=== PATIENT | female | born 1945 | race Caucasian/White ===

== ENCOUNTER 2019-05-14 03:41 | Emergency (ER) | payer MEDICARE ==
[2019-05-14] MEDS ORDERED: Sodium Chloride 0.9% 1,000 ML ONE (04:06)
[2019-05-14 04:38] LABS: #Basophils 0.1 thou/uL (0.0-0.2); #Eosinphils 0.1 thou/uL (0.0-0.7); #Lymphocytes 1.4 thou/uL (1.20-3.40); #Monocytes 1.2 thou/uL (0.11-0.59); #Neutrophils 9.1 thou/uL (1.40-6.50); %Eosinophils 0.5 % (0.0-10.0); %Lymphocytes 12.1 % (21.0-51.0); %Neutrophils 76.4 % (42.0-75.0); Mean Corpuscular Volume 87.9 fL (78.0-98.0); Mean Platelet Volume 5.8 fL (7.4-10.4); Platelet Count 260 thou/uL (130-400); RBC Distribution Width 12.5 % (11.5-14.5); Red Blood Cell (RBC) Count 4.49 mill/uL (4.20-5.40); White Blood Cell (WBC) Count 11.9 thou/uL (4.8-10.8)
[2019-05-14 04:49] LABS: ALT (SGPT) 12 U/L (8-55); AST (SGOT) 16 U/L (5-34); Albumin 4.7 g/dL (3.4-4.8); Anion Gap 18 mmol/L (10-20); BUN (Urea Nitrogen) 6 mg/dL (9.8-20.1); Bilirubin, Total 0.5 mg/dL (0.2-1.2); CK (CPK) 64 U/L (29-168); Calc. Creatinine Clearance 0 mL/min (70-130); Calcium 10.3 mg/dL (7.8-10.44); Carbon Dioxide 22 mmol/L (23-31); Chloride 100 mmol/L (98-107); Estimated GFR-MDRD 76; Globulin 3.2 g/dL (2.4-3.5); Glucose 110 mg/dL (83-110); Protein, Total 7.9 g/dL (6.0-8.3); Sodium 136 mmol/L (136-145)
[2019-05-14 05:06] LABS: Alkaline Phosphatase 58 U/L (40-110)
[2019-05-14] MEDS ORDERED: Acetaminophen 500 MG TAB ONE (05:32)
[2019-05-14] MEDS ORDERED: Cyclobenzaprine 10 MG TAB ONE (05:32)
[2019-05-14 05:52] LABS: Bilirubin Negative (Negative); Blood, Urine Negative (Negative); Clarity Clear (Clear); Glucose, Urine (Dipstick) Negative (Negative); Leukocyte Trace (Negative); Nitrite Negative (Negative); Protein, Urine (Dipstick) Negative (Neg-Trace); Urobilinogen 0.2 mg/dL (Less than 2)
[2019-05-14 05:54] LABS: Bacteria/HPF Rare-Few HPF (None Seen); RBC/HPF 0-3 HPF (0-3); Squamous Epithelial 0-3 HPF (0-3)
[2019-05-14] MEDS ORDERED: cefTRIAXone\\ROCEPHIN 2 GM VIAL ONE (06:11)
[2019-05-14] MEDS ORDERED: Sodium Chloride 0.9% 100 ML ONE (06:11)
[2019-05-14] MEDS ORDERED: methylPREDNISolone Sod Succ/PF 125 MG/2 ML VIAL ONE (06:20)
--- NOTE | 2019-05-14 08:53 | RAD ---
RADIOGRAPH RIGHT FOOT THREE VIEWS: 05/14/2019 4:16 a.m. HISTORY: A 74-year-old female with right foot pain, possible gout. FINDINGS: At the first MTP there is moderate to severe osteophytosis, sclerosis, and multiple subchondral cysts , along with undulating irregularity of the articular surfaces. The degree of joint space narrowing a t the first MTP is mild. There is no hallux valgus. There is diffuse osteopenia. No major arthritic c hanges in the rest of the joints. 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 At least some of the changes are osteoarthro sis, either primary or secondary. Some of the changes could represent sequelae of chronic gout. POS: CET
== END 2019-05-14 06:58 | disposition home or self-care (01) ==
LOC: MADERS 03:41
DX: M10.9 Gout, unspecified (principal); N39.0 Urinary tract infection, site not specified
CPT/HCPCS: 80053; 81003; 81015; 82550; 83605; 85025; 87040; 87077; 87086; 96361; 96365; 96375; J0696; J2930; J3490; J7050

== ENCOUNTER 2020-11-17 13:37 | Emergency (ER) | payer MEDICARE ==
[2020-11-17 14:25] LABS: #Basophils 0.1 thou/uL (0.0-0.2); #Eosinphils 0.1 thou/uL (0.0-0.7); #Lymphocytes 1.9 thou/uL (1.20-3.40); #Monocytes 0.7 thou/uL (0.11-0.59); #Neutrophils 3.7 thou/uL (1.40-6.50); %Basophils 1.9 % (0.0-1.0); %Eosinophils 2.1 % (0.0-10.0); %Lymphocytes 29.3 % (21.0-51.0); %Monocytes 10.3 % (0.0-10.0); %Neutrophils 56.4 % (42.0-75.0); Hemoglobin 12.3 g/dL (12.0-16.0); Mean Corpuscular HGB CONC 32.1 g/dL (32.0-36.0); Mean Corpuscular Hemoglobin 28.9 pg (27.0-31.0); Mean Corpuscular Volume 90.1 fL (78.0-98.0); Mean Platelet Volume 7.9 fL (7.4-10.4); Platelet Count 243 thou/uL (130-400); Red Blood Cell (RBC) Count 4.24 mill/uL (4.20-5.40); White Blood Cell (WBC) Count 6.5 thou/uL (4.8-10.8)
[2020-11-17 14:29] LABS: INR-International Normal Ratio 0.8; PTT 26.7 sec (22.9-36.1); Prothrombin Time 11.7 sec (12.0-14.7)
[2020-11-17 14:40] LABS: ALT (SGPT) 10 U/L (8-55); AST (SGOT) 18 U/L (5-34); Albumin 4.4 g/dL (3.4-4.8); Alkaline Phosphatase 52 U/L (40-110); Anion Gap 16 mmol/L (10-20); BUN (Urea Nitrogen) 8 mg/dL (9.8-20.1); Bilirubin, Total 0.5 mg/dL (0.2-1.2); Calc. Creatinine Clearance 0 mL/min (70-130); Calcium 9.3 mg/dL (7.8-10.44); Carbon Dioxide 22 mmol/L (23-31); Chloride 103 mmol/L (98-107); Globulin 2.7 g/dL (2.4-3.5); Glucose 94 mg/dL (83-110); Potassium 3.8 mmol/L (3.5-5.1); Protein, Total 7.1 g/dL (5.8-8.1); Sodium 137 mmol/L (136-145)
== END 2020-11-17 14:52 | disposition short-term general hospital (02) ==
LOC: MADERS 13:37
DX: I63.9 Cerebral infarction, unspecified (principal); G81.94 Hemiplegia, unspecified affecting left nondominant side; R07.9 Chest pain, unspecified; R06.02 Shortness of breath; R11.0 Nausea; R20.2 Paresthesia of skin; R29.704 NIHSS score 4; M41.9 Scoliosis, unspecified; M10.9 Gout, unspecified; Z79.899 Other long term (current) drug therapy
CPT/HCPCS: 36416; 70450; 71045; 80053; 84484; 85025; 85610; 85730; 93005

== ENCOUNTER 2020-12-20 20:21 | Emergency (ER) | payer MEDICARE ==
[2020-12-20 20:55] LABS: #Basophils 0.1 thou/uL (0.0-0.2); #Eosinphils 0.2 thou/uL (0.0-0.7); #Monocytes 0.8 thou/uL (0.11-0.59); #Neutrophils 2.7 thou/uL (1.40-6.50); %Basophils 1.7 % (0.0-1.0); %Eosinophils 3.2 % (0.0-10.0); %Lymphocytes 44.2 % (21.0-51.0); %Neutrophils 39.9 % (42.0-75.0); Hemoglobin 12.8 g/dL (12.0-16.0); Mean Corpuscular HGB CONC 32.6 g/dL (32.0-36.0); Mean Corpuscular Hemoglobin 29.5 pg (27.0-31.0); Mean Corpuscular Volume 90.6 fL (78.0-98.0); Mean Platelet Volume 7.9 fL (7.4-10.4); Platelet Count 247 thou/uL (130-400); RBC Distribution Width 13.7 % (11.5-14.5); Red Blood Cell (RBC) Count 4.35 mill/uL (4.20-5.40); White Blood Cell (WBC) Count 6.9 thou/uL (4.8-10.8)
[2020-12-20] MEDS ORDERED: Dextrose 50% Abboject 50 ML SYRINGE ONE (21:13)
[2020-12-20 21:16] LABS: ALT (SGPT) 14 U/L (8-55); AST (SGOT) 20 U/L (5-34); Albumin 4.4 g/dL (3.4-4.8); Alkaline Phosphatase 48 U/L (40-110); Anion Gap 16 mmol/L (10-20); BUN (Urea Nitrogen) 9 mg/dL (9.8-20.1); Bilirubin, Total 0.6 mg/dL (0.2-1.2); Calc. Creatinine Clearance 0 mL/min (70-130); Calcium 9.4 mg/dL (7.8-10.44); Carbon Dioxide 22 mmol/L (23-31); Chloride 103 mmol/L (98-107); Glucose 64 mg/dL (83-110); Protein, Total 7.4 g/dL (5.8-8.1); Sodium 138 mmol/L (136-145)
[2020-12-20 21:24] LABS: Potassium 2.9 mmol/L (3.5-5.1)
[2020-12-20 21:42] LABS: Bilirubin Negative (Negative); Blood, Urine Trace (Negative); Clarity Clear (Clear); Glucose, Urine (Dipstick) 250 mg/dL (Negative); Ketone, Urine Negative (Negative); Leukocyte Trace (Negative); Nitrite Negative (Negative); Protein, Urine (Dipstick) Negative (Neg-Trace); Specific Gravity, Urine 1.015 (1.005-1.030); Urobilinogen 0.2 mg/dL (Less than 2)
[2020-12-20 21:46] LABS: Bacteria/HPF Rare-Few HPF (None Seen); RBC/HPF 0-3 HPF (0-3); Squamous Epithelial None Seen HPF (0-3); WBC/HPF 0-3 HPF (0-3)
[2020-12-20] MEDS ORDERED: Cefepime 2 GM VIAL ONE (22:03)
[2020-12-20] MEDS ORDERED: Potassium Chloride 20 MEQ TAB ONE (22:04)
[2020-12-20 22:41] LABS: SARS-CoV-2 NAA Rapid Test Not Detected (NotDetected)
[2020-12-20] MEDS ORDERED: Vancomycin HCl 500 MG VIAL ONE (23:05)
[2020-12-20] MEDS ORDERED: Vancomycin HCl 750 MG VIAL ONE (23:05)
[2020-12-20] MEDS ORDERED: Sodium Chloride 0.9% 250 ML 500 ML ONE (23:06)
[2020-12-20] MEDS ORDERED: Sodium Chloride 0.9% 1,000 ML ONE (23:06)
== END 2020-12-20 23:38 | disposition short-term general hospital (02) ==
LOC: MADERS 20:21
DX: T68.XXXA Hypothermia, initial encounter (principal); E87.6 Hypokalemia; E16.2 Hypoglycemia, unspecified; Z20.822 Contact with and (suspected) exposure to COVID-19; E03.9 Hypothyroidism, unspecified; M41.9 Scoliosis, unspecified; M10.9 Gout, unspecified; Z79.899 Other long term (current) drug therapy; Z79.82 Long term (current) use of aspirin
CPT/HCPCS: 0240U; 70450; 71045; 80053; 82962; 83605; 84484; 85025; 87040; 93005; 36415; 36416; 51701; 81003; 81015; 96365; 96375; J0692; J3370; J7050

== ENCOUNTER 2021-02-22 13:14 | Emergency (ER) | payer MEDICARE ==
[2021-02-22] MEDS ORDERED: Bacitracin 1 PK ONE (13:54)
[2021-02-22] MEDS ORDERED: Budesonide 0.5 MG/2 ML NEB ONE (17:50)
== END 2021-02-22 14:01 | disposition home or self-care (01) ==
LOC: MADERS 13:14
DX: S70.11XA Contusion of right thigh, initial encounter (principal); M25.512 Pain in left shoulder; E03.9 Hypothyroidism, unspecified; M41.9 Scoliosis, unspecified; M19.90 Unspecified osteoarthritis, unspecified site; Z86.73 Personal history of transient ischemic attack (TIA), and cerebral infarction without residual deficits; Z79.899 Other long term (current) drug therapy; Z79.82 Long term (current) use of aspirin; W01.0XXA Fall on same level from slipping, tripping and stumbling without subsequent striking against object, initial encounter
CPT/HCPCS: J7626

== ENCOUNTER 2021-05-09 23:12 | Emergency (ER) | payer MEDICARE ==
[2021-05-09] MEDS ORDERED: Fentanyl 100 MCG/2 ML VIAL ONE (23:52)
[2021-05-10] MEDS ORDERED: Fentanyl 100 MCG/2 ML VIAL ONE ×3 (02:32→12:00)
[2021-05-10 04:01] LABS: #Lymphocytes 0.5 thou/uL (1.20-3.40); #Monocytes 0.4 thou/uL (0.11-0.59); #Neutrophils 2.4 thou/uL (1.40-6.50); %Basophils 1.1 % (0.0-1.0); %Eosinophils 0.5 % (0.0-10.0); %Lymphocytes 16.2 % (21.0-51.0); %Monocytes 11.8 % (0.0-10.0); %Neutrophils 70.6 % (42.0-75.0); Hemoglobin 11.8 g/dL (12.0-16.0); Mean Corpuscular HGB CONC 31.8 g/dL (32.0-36.0); Mean Corpuscular Hemoglobin 29.6 pg (27.0-31.0); Mean Corpuscular Volume 93.2 fL (78.0-98.0); Mean Platelet Volume 7.5 fL (7.4-10.4); Platelet Count 158 thou/uL (130-400); RBC Distribution Width 12.4 % (11.5-14.5); Red Blood Cell (RBC) Count 3.97 mill/uL (4.20-5.40); White Blood Cell (WBC) Count 3.3 thou/uL (4.8-10.8)
[2021-05-10 04:23] LABS: ALT (SGPT) 33 U/L (8-55); AST (SGOT) 60 U/L (5-34); Albumin 4.1 g/dL (3.4-4.8); Alkaline Phosphatase 52 U/L (40-110); Anion Gap 13 mmol/L (10-20); BUN (Urea Nitrogen) 11 mg/dL (9.8-20.1); Bilirubin, Total 0.4 mg/dL (0.2-1.2); Calc. Creatinine Clearance 0 mL/min (70-130); Calcium 8.8 mg/dL (7.8-10.44); Carbon Dioxide 23 mmol/L (23-31); Chloride 103 mmol/L (98-107); Globulin 2.3 g/dL (2.4-3.5); Glucose 100 mg/dL (83-110); Potassium 3.7 mmol/L (3.5-5.1); Protein, Total 6.4 g/dL (5.8-8.1); Sodium 135 mmol/L (136-145)
[2021-05-10 08:35] LABS: SARS-CoV-2 NAA Rapid Test DETECTED (NotDetected)
[2021-05-10 12:47] LABS: CK (CPK) 289 U/L (29-168); CRP (Inflammatory) Less than 0.50 mg/dL (= or < 0.5)
[2021-05-10] MEDS ORDERED: Dexamethasone 10 MG/ML VIAL ONE (13:13)
== END 2021-05-10 13:30 | disposition short-term general hospital (02) ==
LOC: MADERS 23:12
DX: U07.1 COVID-19 (principal); S42.332A Displaced oblique fracture of shaft of humerus, left arm, initial encounter for closed fracture; S22.42XA Multiple fractures of ribs, left side, initial encounter for closed fracture; E03.9 Hypothyroidism, unspecified; Z79.899 Other long term (current) drug therapy; W19.XXXA Unspecified fall, initial encounter
CPT/HCPCS: 29065; 70450; 71250; 72125; 74177; 80053; 82550; 83605; 84484; 85025; 86140; 96374; 96375; 96376; J1100; J3010; U0002

== ENCOUNTER 2022-08-21 20:42 | Emergency (ER) | payer OTHER, MEDICARE ==
[2022-08-21] MEDS ORDERED: Ondansetron ODT 4 MG TAB ONE (21:07)
[2022-08-21] MEDS ORDERED: Acetaminophen 500 MG TAB ONE (21:07)
[2022-08-21] MEDS ORDERED: Labetalol HCl 100 MG/20 ML VIAL ONE (22:04)
[2022-08-21 22:46] LABS: #Basophils 0.1 thou/uL (0.0-0.2); #Eosinphils 0.1 thou/uL (0.0-0.7); #Lymphocytes 1.2 thou/uL (1.20-3.40); #Monocytes 0.5 thou/uL (0.11-0.59); #Neutrophils 4.6 thou/uL (1.40-6.50); %Basophils 0.9 % (0.0-1.0); %Eosinophils 1.4 % (0.0-10.0); %Lymphocytes 18.6 % (21.0-51.0); %Monocytes 8.2 % (0.0-10.0); %Neutrophils 70.9 % (42.0-75.0); Hemoglobin 11.6 g/dL (12.0-16.0); Mean Corpuscular HGB CONC 32.9 g/dL (32.0-36.0); Mean Corpuscular Hemoglobin 29.1 pg (27.0-31.0); Mean Corpuscular Volume 88.3 fl (78.0-98.0); Mean Platelet Volume 6.4 fL (7.4-10.4); Platelet Count 259 10x3/uL (130-400); RBC Distribution Width 12.6 % (11.5-14.5); Red Blood Cell (RBC) Count 3.98 mill/uL (4.20-5.40); White Blood Cell (WBC) Count 6.5 10x3/uL (4.8-10.8)
[2022-08-21 22:58] LABS: PTT 26.2 sec (22.9-36.1)
[2022-08-21 23:06] LABS: ALT (SGPT) 10 U/L (8-55); AST (SGOT) 23 U/L (5-34); Albumin 4.4 g/dL (3.4-4.8); Alkaline Phosphatase 72 U/L (40-110); Anion Gap 17 mmol/L (10-20); BUN (Urea Nitrogen) 9 mg/dL (9.8-20.1); Bilirubin, Total 0.6 mg/dL (0.2-1.2); Calc. Creatinine Clearance 0 mL/min (70-130); Calcium 9.6 mg/dL (7.8-10.44); Carbon Dioxide 22 mmol/L (23-31); Chloride 104 mmol/L (98-107); Estimated GFR 75; Globulin 3.3 g/dL (2.4-3.5); Glucose 105 mg/dL (83-110); Potassium 3.9 mmol/L (3.5-5.1); Protein, Total 7.7 g/dL (5.8-8.1); Sodium 139 mmol/L (136-145)
[2022-08-21] MEDS ORDERED: hydrALAZINE 10 MG TAB ONE (23:42)
== END 2022-08-22 00:14 | disposition short-term general hospital (02) ==
LOC: MADERS 20:42
DX: S06.5XAA Traumatic subdural hemorrhage with loss of consciousness status unknown, initial encounter (principal); E03.9 Hypothyroidism, unspecified; Z79.899 Other long term (current) drug therapy; W17.89XA Other fall from one level to another, initial encounter
CPT/HCPCS: 70450; 72125; 80053; 85025; 85610; 85730; Q0162